=== PATIENT | male | born 1980 | race Caucasian/White ===

== ENCOUNTER 2019-06-03 12:01 | Emergency (ER) | payer SELFPAY ==
[~2019-06-03] VITALS: Ht 185.4 cm; Wt 99.8 kg
[2019-06-03 12:28] VITALS: BP 142/84
[2019-06-03] MEDS ORDERED: ULTRAM50 MG PO (12:29)
[2019-06-03] MEDS ORDERED: CLINDAMYCIN HC300 MG PO (12:29)
[2019-06-03] MEDS ORDERED: BACTRIM DS TAB1 EACH PO (12:29)
== END 2019-06-03 12:35 | disposition home or self-care (01) ==
LOC: ER 12:01
DX: L03.317 Cellulitis of buttock (principal)
CPT/HCPCS: 99282

== ENCOUNTER 2021-11-22 19:07 | Emergency (ER) | payer SELFPAY ==
[~2021-11-22] VITALS: Ht 185.4 cm; Wt 99.8 kg
[~2021-11-22 19:07] MED LIST: BACTRIM DS TAB1 EACH PO; CLINDAMYCIN HC300 MG PO; ULTRAM50 MG PO
[2021-11-22] MEDS ORDERED: ALBUTEROL/IPRATROPIUM 3 ML NEB NEB ONE (20:15)
== END 2021-11-22 21:58 | disposition home or self-care (01) ==
LOC: ER 20:25
DX: R05.9 Cough, unspecified (principal); J20.9 Acute bronchitis, unspecified; Z20.822 Contact with and (suspected) exposure to COVID-19
CPT/HCPCS: 71045; 93005; 94799; 99283; U0002